=== PATIENT | male | born 1995 | race Caucasian/White ===

== ENCOUNTER 2016-12-25 17:11 | Emergency (ER) | payer SELFPAY ==
[~2016-12-25] VITALS: Ht 172.7 cm; Wt 105.0 kg
[2016-12-25] MEDS ORDERED: SODIUM CHLORIDE 0.9% 1,000 ML IV SCH (19:41)
[2016-12-25] MEDS ORDERED: LIDOCAINE HCL/EPINEPHRINE 1%-EPI 1:100,000 30 ML VIAL INFIL ONE (19:45)
[2016-12-25] MEDS ORDERED: METHYLPREDNISOLONE SOD SUCC 125 MG/2 ML VIAL IV ONE (19:45)
[2016-12-25] MEDS ORDERED: CLINDAMYCIN 600 MG in DEXTROSE 5% WATER 50 ML IV ONE (19:45)
[2016-12-25] MEDS ORDERED: KETOROLAC 30MG/ML VIAL IV ONE (19:45)
[2016-12-25] MEDS ORDERED: LIDOCAINE 1%/EPI 1:200,000 10 ML VIAL IJ NR (20:39)
[2016-12-25] MEDS ORDERED: CLINDAMYCIN 600MG PREMIX 50 ML IV NR (21:00)
[2016-12-25 23:35] LABS: HEMATOCRIT. 43.8 % (42.0-52.0); HEMOGLOBIN. 15.3 g/dL (14.0-18.0); INR 1.1; MEAN CORPUSCULAR HEMOGLOBIN 31.7 pg (28.0-32.0); MEAN CORPUSCULAR VOLUME 90.7 fL (80.0-94.0); MEAN PLATELET VOLUME 9.3 fl (7.4-10.4); PLATELET 245 x1000/uL (130-400); PROTHROMBIN TIME 11.9 sec (9.4-11.6); RED BLOOD CELL COUNT 4.83 mill/uL (4.7-6.1); RED CELL DISTRIBUTION WIDTH 12.8 % (11.6-14.6)
[2016-12-25 23:43] LABS: CHLORIDE 103 mEq/L (98-107)
[2016-12-25 23:52] LABS: CARBON DIOXIDE 23 mEq/L (21-32)
[2016-12-26 00:01] LABS: ATYPICAL LYMPHOCYTES 1; PLATELET ESTIMATE NORMAL
[2016-12-26] MEDS ORDERED: IOHEXOL-300 100 ML BOTTLE ONE (01:14)
[2016-12-26 03:58] VITALS: BP 119/72
== END 2016-12-26 04:32 | disposition short-term general hospital (02) ==
LOC: ER 21:06
DX: J36 Peritonsillar abscess (principal); F17.210 Nicotine dependence, cigarettes, uncomplicated; R79.1 Abnormal coagulation profile
CPT/HCPCS: 36415; 42700; 70491; 80053; 83605; 85025; 85610; 87040; 96365; 96375; 99285; 99406; J1885; J2930; J3490; J7030; Q9967; Z7610; J7060

== ENCOUNTER 2017-10-21 18:02 | Emergency (ER) | payer OTHER ==
[~2017-10-21] VITALS: Ht 175.3 cm; Wt 111.0 kg
[2017-10-21] MEDS ORDERED: SODIUM CHLORIDE 0.9% 1,000 ML IV ONE (23:03)
[2017-10-21] MEDS ORDERED: METHYLPREDNISOLONE SOD SUCC 125 MG/2 ML VIAL IV ONE (23:15)
[2017-10-21] MEDS ORDERED: LIDOCAINE HCL/PF 1% 10 MG/ML 5ML VIAL IJ ONE (23:15)
[2017-10-21] MEDS ORDERED: CLINDAMYCIN 600 MG in DEXTROSE 5% WATER 50 ML IV ONE (23:15)
[2017-10-21] MEDS ORDERED: KETOROLAC 30MG/ML VIAL IV ONE (23:15)
[2017-10-21] MEDS ORDERED: CLINDAMYCIN 600 MG in SODIUM CHLORIDE 0.9% 50 ML IV NR (23:45)
[2017-10-22 03:37] VITALS: BP 109/54
== END 2017-10-22 03:45 | disposition home or self-care (01) ==
LOC: ER 18:02
DX: J36 Peritonsillar abscess (principal); F17.200 Nicotine dependence, unspecified, uncomplicated
CPT/HCPCS: 96365; 96366; 96375; 99285; J1885; J2930; J3490; J7030; Z7610; J7060

== ENCOUNTER 2018-04-13 15:14 | Emergency (ER) | payer MEDICAID, OTHER ==
[~2018-04-13] VITALS: Ht 170.2 cm; Wt 123.0 kg
[2018-04-13] MEDS ORDERED: KETOROLAC 30MG/ML VIAL IM ONE (20:00)
[2018-04-13] MEDS ORDERED: DEXAMETHASONE 10 MG/ML VIAL IM ONE (20:00)
[2018-04-13] MEDS ORDERED: AMOXICILLIN/POTASSIUM CLAVULANATE 875/125MG TAB PO ONE (20:00)
[2018-04-13 20:23] VITALS: BP 119/71
== END 2018-04-13 20:22 | disposition home or self-care (01) ==
LOC: ER 15:14
DX: J03.90 Acute tonsillitis, unspecified (principal); R03.0 Elevated blood-pressure reading, without diagnosis of hypertension
CPT/HCPCS: 96372; 99283; J1100; J1885

== ENCOUNTER 2018-08-19 15:09 | Emergency (ER) | payer OTHER ==
[~2018-08-19] VITALS: Ht 175.3 cm; Wt 100.0 kg
[2018-08-19] MEDS ORDERED: BACITRACIN ZINC OINT UDPKT TOP ONE (16:45)
[2018-08-19] MEDS ORDERED: ACETAMINOPHEN 325MG TABLET PO ONE (16:45)
[2018-08-19] MEDS ORDERED: LIDOCAINE 1%/EPI 1:100,000 10 ML VIAL IJ ONE (16:45)
[2018-08-19] MEDS ORDERED: TETANUS, DIPHTHERIA, PERTUSSIS VAC/PF 0.5ML (>7YR OLD) IM ONE (16:45)
[2018-08-19] MEDS ORDERED: LIDOCAINE HCL/EPINEPHRINE 1%-EPI 1:100,000 20 ML VIAL INFIL NR (18:00)
[2018-08-19 19:43] VITALS: BP 104/59
== END 2018-08-19 20:29 | disposition home or self-care (01) ==
LOC: ER 15:09
DX: S02.82XA Fracture of other specified skull and facial bones, left side, initial encounter for closed fracture (principal); Y08.89XA Assault by other specified means, initial encounter; Y93.89 Activity, other specified; Y92.89 Other specified places as the place of occurrence of the external cause; Y99.8 Other external cause status
CPT/HCPCS: 12013; 70450; 70486; 72125; 90471; 90715; 99284; A4217; J3490; Z7610

== ENCOUNTER 2020-09-12 20:07 | Emergency (ER) | payer SELFPAY ==
[~2020-09-12] VITALS: Ht 175.3 cm; Wt 114.0 kg
[2020-09-12] MEDS ORDERED: HYDROCODONE/ACETAMINOPHEN 5/325MG TABLET PO ONE (21:00)
[2020-09-13] MEDS ORDERED: TETANUS, DIPHTHERIA, PERTUSSIS VAC/PF 0.5ML (>7YR OLD) IM ONE (02:00)
[2020-09-13 02:29] VITALS: BP 126/75
== END 2020-09-13 02:32 | disposition home or self-care (01) ==
LOC: ER 20:57
DX: S36.33XA Laceration of stomach, initial encounter (principal); R03.0 Elevated blood-pressure reading, without diagnosis of hypertension; W01.0XXA Fall on same level from slipping, tripping and stumbling without subsequent striking against object, initial encounter; Y93.89 Activity, other specified; Y92.89 Other specified places as the place of occurrence of the external cause; Z23 Encounter for immunization
CPT/HCPCS: 12005; 74176; 90471; 90715; 99284; Z7610